=== PATIENT | female | born 1960 | race Caucasian/White ===

== ENCOUNTER 2017-12-06 21:50 | Inpatient (IN) | payer OTHER ==
[~2017-12-06] VITALS: Ht 172.7 cm; Wt 100.5 kg
[~2017-12-06 21:50] MED LIST: ATEN25TA PO; HYDR-3516 PO; MELO7.5T27 PO; VARE.5 PO
[2017-12-06 22:36] VITALS: BP 96/55; PULSE 94; RESP 20; TEMP 99.9; O2SAT 96
[2017-12-06] MEDS ORDERED: BISACODYL 10 MG SUPP RECTAL PRN (22:45)
[2017-12-06] MEDS ORDERED: PILL SPLITTER OTHER PRN (22:45)
[2017-12-06] MEDS ORDERED: HYDROmorphone HCL PF 1 MG/ML VIAL IV PUSH PRN (22:45)
[2017-12-06] MEDS ORDERED: ONDANSETRON HCL 4 MG/2 ML VIAL IVP PRN (22:45)
[2017-12-06] MEDS ORDERED: SODIUM CHLORIDE 0.9% FLUSH 10 ML FLUSH IV FLUSH PRN (22:45)
[2017-12-06] MEDS ORDERED: NALOXONE HCL 0.4 MG/ML AMP IV PUSH PRN (22:45)
[2017-12-06] MEDS ORDERED: SENNOSIDES 8.6 MG TAB PO PRN (22:45)
[2017-12-06] MEDS ORDERED: LACTULOSE SYRUP 20 GM/30 ML CUP PO PRN (22:45)
[2017-12-06] MEDS ORDERED: MAGNESIUM HYDROXIDE SUSP 30 ML CUP PO PRN (22:45)
--- NOTE | 2017-12-06 22:49 | HHI.HP ---
HPI Service CP Hospitalists Primary Care Physician Unknown Admission Diagnosis pneumonia ,pleuritic chest pain cough Chief Complaint: cough with chest pain Travel History International Travel<30 Days: No Contact w/Intl Traveler <30 Da: No Traveled to Known Affected Are: No History of Present Illness This is a 57-year-old female presents to the ER complaining of cough runny nose for the last 2 weeks. She also complained of a fall I was mechanical this morning and started having rib cage pain that she thought was due to the fall which prompted her to come to the ER. Pain is located in the left rib cage, worse when she takes a deep breath or coughs. Cough is productive of yellow sputum and has been going on for the last 2 weeks. She denies any fevers chills or night sweats she denies any weight loss or low appetite. Patient has been on mucinex without improvement ,in ER had chest xray and CTA-negative for pulmonary embolus but did show significant rt middle lobe pneumonia ,and started on levaquin. Patient also having pleuretic chest pain with cough. Review of Systems Respiratory: COMPLAINS OF: Cough Cardiovascular: COMPLAINS OF: Chest pain Past Family Social History Past Medical History chronic sciatic back pain,anxiety takes atenolol prn for heart rate Past Surgical History none Reported Medications xanax 1mg,atenolol 12.5 bid prn,melaxocam 7.5,chantex hydrocodone prn Allergies: Coded Allergies: No Known Allergies (Unverified , 12/06/17) Social History recently decreased smoking Physical Exam Vital Signs Vital Signs Date Time Temp Pulse Resp B/P (MAP) Pulse Ox O2 Delivery O2 Flow Rate FiO2 12/06/17 22:36 99.9 94 20 96/55 (69) 96 Physical Exam GENERAL: This is a well-nourished, well-developed patient, in no apparent distress. SKIN: No rashes, ecchymoses or lesions. Cool and dry. HEAD: Atraumatic. Normocephalic. No temporal or scalp tenderness. EYES: Pupils equal round and reactive. Extraocular motions intact. No scleral icterus. No injection or drainage. ENT: Nose without bleeding, purulent drainage or septal hematoma. Throat without erythema, tonsillar hypertrophy or exudate. Uvula midline. Airway patent. NECK: Trachea midline. No JVD or lymphadenopathy. Supple, nontender, no meningeal signs. CARDIOVASCULAR: Regular rate and rhythm without murmurs, gallops, or rubs. RESPIRATORY: Decrease breath sounds with rhonchi rt base GASTROINTESTINAL: Abdomen soft, non-tender, nondistended. No hepato-splenomegaly , or palpable masses. No guarding. MUSCULOSKELETAL: Extremities without clubbing, cyanosis, or edema. No joint tenderness, effusion, or edema noted. No calf tenderness. Negative Homans sign bilaterally. NEUROLOGICAL: Awake and alert. Cranial nerves II through XII intact. Motor and sensory grossly within normal limits. Five out of 5 muscle strength in all muscle groups. Normal speech. Laboratory lab review no significant changes Imaging pneumonia rt middle lobe on CT scan Course start on levaquin fluids pain medication Caprini VTE Risk Assessment Caprini VTE Risk Assessment: Mod/High Risk (score >= 2) Caprini Risk Assessment Model Point Value = 1 Point Value = 2 Point Value = 3 Point Value = 5 Age 41-60 Minor surgery BMI > 25 kg/m2 Swollen legs Varicose veins or History of unexplained or recurrent spontaneous Oral contraceptives or hormone replacement Sepsis (< 1 month) Serious lung disease, including pneumonia (< 1 month) Abnormal pulmonary function Acute myocardial infarction Congestive heart failure (< 1 month) History of inflammatory bowel disease Medical patient at bed rest Age 61-74 Arthroscopic surgery Major open surgery (> 45 min) Laparoscopic surgery (> 45 min) Malignancy Confined to bed (> 72 hours) Immobilizing plaster cast Central venous access Age >= 75 History of VTE Family history of VTE Factor V Leiden Prothrombin [id number] Lupus anticoagulant Anticardiolipin antibodies Elevated serum homocysteine Heparin-induced thrombocytopenia Other congenital or acquired thrombophilia Stroke (< 1 month) Elective arthroplasty Hip, pelvis, or leg fracture Acute spinal cord injury (< 1 month) Prophylaxis Regimen Total Risk Factor Score Risk Level Prophylaxis Regimen 0-1 Low Early ambulation 2 Moderate Order ONE of the following: *Sequential Compression Device (SCD) *Heparin 5000 units SQ BID 3-4 Higher Order ONE of the following medications: *Heparin 5000 units SQ TID *Enoxaparin/Lovenox 40 mg SQ daily (WT < 150 kg, CrCl > 30 mL/min) *Enoxaparin/Lovenox 30 mg SQ daily (WT < 150 kg, CrCl > 10-29 mL/min) *Enoxaparin/Lovenox 30 mg SQ BID (WT < 150 kg, CrCl > 30 mL/min) AND/OR *Sequential Compression Device (SCD) 5 or more Highest Order ONE of the following medications: *Heparin 5000 units SQ TID (Preferred with Epidurals) *Enoxaparin/Lovenox 40 mg SQ daily (WT < 150 kg, CrCl > 30 mL/min) *Enoxaparin/Lovenox 30 mg SQ daily (WT < 150 kg, CrCl > 10-29 mL/min) *Enoxaparin/Lovenox 30 mg SQ BID (WT < 150 kg, CrCl > 30 mL/min) AND *Sequential Compression Device (SCD) Assessment and Plan Problem List: (1) Pneumonia ICD Codes: J18.9 - Pneumonia, unspecified organism Plan: rt sided will continue levaquin oxygen will get pulmonary evaluation follow labs (2) Pleuritic chest pain ICD Codes: R07.81 - Pleurodynia Plan: hydromorph for pain Assessment and Plan further plan as case progresses may need to change to full admit Code Status full Discussed Condition With patient Gilberto Person MD Dec 06, 2017 22:49
[2017-12-06 23:25] VITALS: BP 96/52; PULSE 85; RESP 20; TEMP 98.7; O2SAT 100
[2017-12-06] MEDS: SODIUM CHLOR 0.45% 1000 ML INJ 1,000 ML IV SCH (23:52)
[2017-12-06] MEDS: LEVOFLOXACIN 500 MG PREMIX INJ 100 ML IV SCH (23:53)
[2017-12-06] MEDS: guaiFENesin/CODEINE SYRUP 200 MG/20 MG/10 ML CUP PO PRN (23:53)
[2017-12-07] VITALS (12 sets, daily range): BP systolic 101–132; BP diastolic 54–74; PULSE 84–110; RESP 16–24; TEMP 97.8–100.6; O2SAT 91–98
[2017-12-07] MEDS: ACETAMINOPHEN/HYDROcodone 325 MG/5 MG TAB PO PRN ×2 (03:43→13:16)
[2017-12-07] MEDS: HYDROmorphone HCL PF 2 MG/ML VIAL IV PUSH PRN ×2 (05:12→21:30)
[2017-12-07] MEDS ORDERED: ATENOLOL 25 MG TAB PO SCH (09:00)
[2017-12-07] MEDS: RESP: ALBUTEROL 2.5 MG/IPRATROPIUM 0.5 MG NEB (SCH) NEB ×3 (09:45→20:38)
--- NOTE | 2017-12-07 10:30 | HHI.PR ---
Subjective Remarks Pt reports that she has had a cough and congestion for about 2 weeks Two days ago she started having right sided rib pain with coughing or deep breathing. Pt started feeling generally worse and having increased cough with some yellow sputum when she is able to take a deep enough breath to cough anything up. Objective Vitals Vital Signs Date Time Temp Pulse Resp B/P (MAP) Pulse Ox O2 Delivery O2 Flow Rate FiO2 12/07/17 09:58 97 12/07/17 07:43 98.7 97 16 114/64 (81) 97 12/07/17 03:33 100.6 103 24 108/56 (73) 95 12/07/17 01:02 91 12/07/17 00:00 98 12/06/17 23:25 98.7 85 20 96/52 (67) 100 12/06/17 22:36 99.9 94 20 96/55 (69) 96 Imaging CXR (12/06/17) --> Bibasilar pneumonia. Small right pleural effusion CT Pulmonary Angiogram (12/06/17)--> Negative for PE. Small right pleural effusion with dense consolidation in the right middle lobe Objective Remarks General: Ill appearing white female, AAOx3 Chest: Pt taking shallow breaths, tachypneic, decreased air movement on the right base Cardiac: Tachy, regular Abd: +BS, soft ND/NT Ext: No edema A/P Problem List: (1) Pneumonia ICD Codes: J18.9 - Pneumonia, unspecified organism Plan: Right middle lobe pneumonia Pleuritic chest pain - Pt is a 57 y/o WF with anxiety, chronic back pain and tachycardia for which she takes Atenolol as needed at home. - Pt presented to the ED at [facility] on 12/06/17 with complaints of right rib pain. - Pt had reportedly had a cough and congestion for the last 2 weeks. It was documented that the pt fell at home yesterday and started having right sided rib pain. She tells me today that she did not fall but started having increased cough and right sided rib pain two days ago. - CXR (12/06/17) --> Bibasilar pneumonia. Small right pleural effusion - CT Pulmonary Angiogram (12/06/17)--> Negative for PE. Small right pleural effusion with dense consolidation in the right middle lobe - Pt was started on Levaquin IV at admission - She is on 3-4L of supplemental oxygen currently - Pt was started on [place] and Dilaudid PRN for rib pain but pts BP has been low - She is splinting and not taking deep breaths due to pain - Trial of Naprosyn for the pleuritic chest pain - Start Duonebs Q6H and Mucinex BID - Sputum culture - IS - Check urinary antigen for Legionella and Pneumococcal - IVF - She was a tobacco smoker for about 12 years but quit 1 month ago and has been on Chantix. - Pulmonary Medicine was consulted at admission - Supportive care - DVT prophylaxis with SCDs Sinus tachycardia - Atenolol on hold due to hypotension - Telemetry (2) Pleuritic chest pain ICD Codes: R07.81 - Pleurodynia Luiza Díaz Dec 07, 2017 10:30
[2017-12-07] MEDS ORDERED: NAPROXEN 500 MG TAB PO ONE (11:00)
[2017-12-07] MEDS: DOCUSATE SODIUM 50 MG/SENNA 8.6 MG TAB PO SCH ×2 (11:01→21:29)
[2017-12-07] MEDS: guaiFENesin E.R. 600 MG TAB PO SCH ×2 (11:02→21:29)
[2017-12-07] MEDS: SODIUM CHLORIDE 0.9% FLUSH 10 ML FLUSH IV FLUSH SCH ×2 (11:02→21:00)
[2017-12-07 11:11] LABS: ALBUMIN 2.2 GM/DL (3.4-5.0); ALT (GPT) 17 U/L (10-53); AST (GOT) 24 U/L (15-37); BICARBONATE 28.1 MEQ/L (21.0-32.0); BLOOD UREA NITROGEN 14 MG/DL (7-18); CHLORIDE 95 MEQ/L (98-107); CREATININE 0.63 MG/DL (0.50-1.00); GLOMERULAR FILTRATION RATE 97 ML/MIN (>89); GLUCOSE,RANDOM 128 MG/DL (74-106); SODIUM (NA) 131 MEQ/L (136-145)
[2017-12-07 11:13] LABS: ALKALINE PHOSPHATASE 81 U/L (45-117); TOTAL BILIRUBIN ADULT 0.3 MG/DL (0.2-1.0); TOTAL PROTEIN 7.8 GM/DL (6.4-8.2)
[2017-12-07 11:31] LABS: AUTOMATED NEUTROPHIL # 7.4 TH/MM3 (1.8-7.7); BASOPHIL % 0.2 % (0.0-2.0); EOSINOPHIL % 0.3 % (0.0-4.0); HEMATOCRIT 31.7 % (35.0-46.0); HEMOGLOBIN 10.6 GM/DL (11.6-15.3); LYMPH % 5.2 % (9.0-44.0); LYMPHOCYTE # 0.4 TH/MM3 (1.0-4.8); MEAN CELL VOLUME 82.3 FL (80.0-100.0); MEAN CORPUSCULAR HEMOGLOBIN 27.6 PG (27.0-34.0); MEAN CORPUSCULAR HGB CONC 33.5 % (32.0-36.0); MEAN PLATELET VOLUME 8.2 FL (7.0-11.0); MONO % 7.9 % (0.0-8.0); MONOCYTE # 0.7 TH/MM3 (0-0.9); NEUT % 86.4 % (16.0-70.0); PLATELET COUNT 206 TH/MM3 (150-450); RED BLOOD COUNT 3.85 MIL/MM3 (4.00-5.30); RED CELL DISTRIBUTION WIDTH 15.8 % (11.6-17.2); WHITE BLOOD COUNT 8.5 TH/MM3 (4.0-11.0)
[2017-12-07] MEDS: SODIUM CHLOR 0.45% 1000 ML INJ 1,000 ML IV SCH (11:52)
--- NOTE | 2017-12-07 13:07 | MB ---
cc: Arron Méndez MD DATE: 12/07/2017 REQUESTING PHYSICIAN: Dr. Hernandez. REASON FOR CONSULTATION: Evaluate for pneumonia. HISTORY OF PRESENT ILLNESS: Mrs. Hart is a 57-year-old female with a history of nicotine use which she claims to have quit few weeks ago when she was taking Chantix. She came to the hospital with cough and cold and right-sided chest pain for the last 3 days or so. She has cough, only small amount of sputum, but she did not have fever. No nausea or vomiting. Because of worsening of symptoms, she came to the hospital. She had CT of the chest done; it does not show any pulmonary embolism. It shows she has dense right middle lobe consolidation and has subcarinal lymph node measuring 1.1 cm. Her CBC shows a WBC count of 8.5, hemoglobin 10.6, hematocrit 31.7, MCV 88, platelet count 206. Sodium 130, potassium 3.7, chloride 94, CO2 28, BUN 14, creatinine 0.63. She feels her breathing is better. She is on room air. Does complain of chest pain. PAST MEDICAL HISTORY: Significant for history of nicotine use, chronic back pain. MEDICATIONS: She is currently takin. Naproxen 500 mg every 12 hours. 2. Mucinex 600 mg twice a day. 3. Albuterol/Atrovent nebulizer treatment. 4. Dilaudid for pain. 5. Levaquin 500 mg a day. 6. Hydrocodone for pain. ALLERGIES: NO KNOWN DRUG ALLERGIES. SOCIAL HISTORY: She has history of smoking, which she quit a few weeks ago. Denies any alcohol use. She works taking care of elderly people. FAMILY HISTORY: She is , lives with a roommate. No children. REVIEW OF SYSTEMS: Normally she is up, around and active. Weight is stable. No DVT, pulmonary embolism, no seizure, stroke or epilepsy. PHYSICAL EXAMINATION: GENERAL: Thin built female, mild discomfort, not in acute distress. VITAL SIGNS: Blood pressure 132/74, heart rate 110, respirations 16, temperature 98. HEENT EXAMINATION: Pupils are equal and reactive. Oral mucosa, nasal mucosa normal. NECK: Supple. No JVD noted. CHEST: She has rales on the right side. CARDIOVASCULAR: S1, S2 normal. ABDOMEN: Benign. EXTREMITIES: No edema. ASSESSMENT: 1. Right middle lobe pneumonia, likely community acquired pneumonia. She is not bringing up any sputum. 2. Right pleuritic chest pain. 3. Likely underlying chronic obstructive pulmonary disease. 4. Subcarinal lymph node, likely reactive. PLAN: We will treat her with antibiotic, aerosol treatment, Mucinex twice a day, pain controlled. She will need a repeat CAT scan in about 6 weeks or so to make sure the infiltrates have resolved and the subcarinal lymph node is improving. Further treatment will depend on the course in the hospital. Thank you Dr. Hernandez for this consult. MD SAMMI Bear/SB , 12:30 PM , 01:06 PM
[2017-12-07] MEDS: NAPROXEN 500 MG TAB PO SCH (21:29)
[2017-12-07] MEDS: LEVOFLOXACIN 500 MG PREMIX INJ 100 ML IV SCH (23:30)
[2017-12-08] VITALS (9 sets, daily range): BP systolic 100–110; BP diastolic 55–59; PULSE 80–100; RESP 18; TEMP 97.4–98.4; O2SAT 96–98
[2017-12-08] MEDS: HYDROmorphone HCL PF 2 MG/ML VIAL IV PUSH PRN ×6 (01:33→23:58)
[2017-12-08] MEDS: SODIUM CHLOR 0.45% 1000 ML INJ 1,000 ML IV SCH ×2 (06:59→20:46)
[2017-12-08] MEDS: RESP: ALBUTEROL 2.5 MG/IPRATROPIUM 0.5 MG NEB (SCH) NEB ×3 (07:44→19:33)
[2017-12-08] MEDS: SODIUM CHLORIDE 0.9% FLUSH 10 ML FLUSH IV FLUSH SCH ×2 (08:43→20:44)
[2017-12-08] MEDS: DOCUSATE SODIUM 50 MG/SENNA 8.6 MG TAB PO SCH ×2 (08:43→20:44)
[2017-12-08] MEDS: guaiFENesin E.R. 600 MG TAB PO SCH ×2 (08:43→20:44)
[2017-12-08] MEDS: NAPROXEN 500 MG TAB PO SCH (08:43)
--- NOTE | 2017-12-08 11:12 | HHI.PR ---
Subjective Remarks maybe a little better. still miserable hard to cough due to pain. Objective Vitals heart reg lung crackles right lung/ abd s/nt ext no edema Vital Signs Date Time Temp Pulse Resp B/P (MAP) Pulse Ox O2 Delivery O2 Flow Rate FiO2 12/08/17 08:00 97.4 80 18 100/55 (70) 98 12/08/17 07:45 97 Nasal Cannula 3.00 12/07/17 23:59 99.9 94 16 101/54 (70) 97 12/07/17 23:00 94 12/07/17 20:43 96 Nasal Cannula 3.00 12/07/17 20:38 98.7 97 20 108/56 (73) 96 12/07/17 15:25 97.8 84 18 107/59 (75) 94 12/07/17 14:16 20 12/07/17 12:29 108 24 91 12/07/17 11:56 98.0 110 16 132/74 (93) 93 12/08/17 12/08/17 12/09/17 15:00 23:00 07:00 Intake Total 360 ml Balance 360 ml IV Total 360 ml Result Diagram: 12/07/17 1020 12/07/17 1020 Imaging CXR (12/06/17) --> Bibasilar pneumonia. Small right pleural effusion CT Pulmonary Angiogram (12/06/17)--> Negative for PE. Small right pleural effusion with dense consolidation in the right middle lobe A/P Problem List: (1) Pneumonia ICD Codes: J18.9 - Pneumonia, unspecified organism Status: Acute Plan: Right middle lobe pneumonia CAP Pleuritic chest pain - Pt is a 57 y/o WF with anxiety, chronic back pain and tachycardia for which she takes Atenolol as needed at home. - Pt presented to the ED at [facility] on 12/06/17 with complaints of right rib pain. - Pt had reportedly had a cough and congestion for the last 2 weeks. It was documented that the pt fell at home yesterday and started having right sided rib pain. She tells me today that she did not fall but started having increased cough and right sided rib pain two days ago. - CXR (12/06/17) --> Bibasilar pneumonia. Small right pleural effusion - CT Pulmonary Angiogram (12/06/17)--> Negative for PE. Small right pleural effusion with dense consolidation in the right middle lobe - Pt was started on Levaquin IV at admission - She is on 3-4L of supplemental oxygen currently - Pt was started on [place] and Dilaudid PRN - She is splinting and not taking deep breaths due to pain - Trial of Naprosyn for the pleuritic chest pain - Start Duonebs Q6H and Mucinex BID - Sputum culture - IS - Check urinary antigen for Legionella and Pneumococcal. still pending - IVF - She was a tobacco smoker for about 12 years but quit 1 month ago and has been on Chantix. - Pulmonary Medicine was consulted at admission - repeat cxr pending -pulmonary recommending repeat ct chest in 4-6 weeks. - DVT prophylaxis with SCDs Sinus tachycardia - Atenolol on hold due to hypotension - Telemetry (2) Pleuritic chest pain ICD Codes: R07.81 - Pleurodynia Eitan Robbins MD Dec 08, 2017 11:12
--- NOTE | 2017-12-08 12:22 | RADRPT ---
EXAM DATE/TIME: 12/08/2017 10:59 [facility] COMPARISON: CT PULMONARY ANGIOGRAM, December 06, 2017, 18:36. INDICATIONS : Shortness of breath, midline chest pain, and coughing. MEDICAL HISTORY : None. SURGICAL HISTORY : None. ENCOUNTER: Subsequent ACUITY: 3 days PAIN SCORE: 4/10 LOCATION: Chest, midline. FINDINGS: Extensive consolidation of the right lung base is still noted. Small right pleural effusion is also n oted. The left lung is clear. CONCLUSION: Persistent extensive consolidation of the right lung base and small right pleural eff usion. Nixon Lee MD on December 08, 2017 at 12:18 Board Certified Radiologist. This report was verified electronically.
[2017-12-08 17:49] LABS: AUTOMATED NEUTROPHIL # 5.3 TH/MM3 (1.8-7.7); BASOPHIL % 0.5 % (0.0-2.0); EOSINOPHIL # 0.1 TH/MM3 (0-0.4); EOSINOPHIL % 1.1 % (0.0-4.0); HEMATOCRIT 28.6 % (35.0-46.0); HEMOGLOBIN 9.4 GM/DL (11.6-15.3); LYMPH % 13.3 % (9.0-44.0); LYMPHOCYTE # 0.9 TH/MM3 (1.0-4.8); MEAN CELL VOLUME 81.3 FL (80.0-100.0); MEAN CORPUSCULAR HEMOGLOBIN 26.8 PG (27.0-34.0); MEAN CORPUSCULAR HGB CONC 32.9 % (32.0-36.0); MONO % 7.5 % (0.0-8.0); MONOCYTE # 0.5 TH/MM3 (0-0.9); NEUT % 77.6 % (16.0-70.0); PLATELET COUNT 238 TH/MM3 (150-450); RED BLOOD COUNT 3.52 MIL/MM3 (4.00-5.30); WHITE BLOOD COUNT 6.8 TH/MM3 (4.0-11.0)
[2017-12-08 18:17] LABS: BICARBONATE 27.3 MEQ/L (21.0-32.0); CREATININE 0.49 MG/DL (0.50-1.00)
[2017-12-08] MEDS: ALPRAZolam 0.5 MG TAB PO PRN (20:44)
[2017-12-08] MEDS: LEVOFLOXACIN 500 MG TAB PO SCH (23:57)
[2017-12-09] VITALS (11 sets, daily range): BP systolic 100–123; BP diastolic 53–62; PULSE 88–100; RESP 18–19; TEMP 97.4–98.3; O2SAT 93–98
[2017-12-09] MEDS: SODIUM CHLOR 0.45% 1000 ML INJ 1,000 ML IV SCH (03:52)
[2017-12-09] MEDS: HYDROmorphone HCL PF 2 MG/ML VIAL IV PUSH PRN ×5 (04:13→20:39)
[2017-12-09] MEDS: guaiFENesin/CODEINE SYRUP 200 MG/20 MG/10 ML CUP PO PRN ×2 (04:15→16:03)
[2017-12-09] MEDS: DOCUSATE SODIUM 50 MG/SENNA 8.6 MG TAB PO SCH ×2 (08:19→20:38)
[2017-12-09] MEDS: guaiFENesin E.R. 600 MG TAB PO SCH ×2 (08:19→20:38)
[2017-12-09] MEDS: SODIUM CHLORIDE 0.9% FLUSH 10 ML FLUSH IV FLUSH SCH ×2 (08:20→20:39)
--- NOTE | 2017-12-09 11:14 | HHI.PR ---
Subjective Remarks Pt doing better with taking deep breaths but she is still requiring the IV dailudid for pain She is bringing up yellow sputum Objective Vitals Vital Signs Date Time Temp Pulse Resp B/P (MAP) Pulse Ox O2 Delivery O2 Flow Rate FiO2 12/09/17 09:26 97 12/09/17 08:54 96 12/09/17 07:48 97.7 99 19 109/60 (76) 97 12/09/17 04:00 98.3 96 18 109/53 (71) 94 12/09/17 00:00 98.1 93 18 104/56 (72) 96 12/08/17 23:47 100 12/08/17 20:00 98.4 99 18 108/59 (75) 97 12/08/17 19:35 96 Nasal Cannula 3.00 12/08/17 19:26 100 12/08/17 16:14 92 12/08/17 16:00 98.1 94 18 110/56 (74) 98 12/08/17 12:00 97.8 90 18 102/57 (72) 98 12/08/17 12:00 84 Result Diagram: 12/08/17 1711 12/08/17 1711 Other Results Laboratory Tests Test 12/08/17 17:11 White Blood Count 6.8 TH/MM3 Red Blood Count 3.52 MIL/MM3 Hemoglobin 9.4 GM/DL Hematocrit 28.6 % Mean Corpuscular Volume 81.3 FL Mean Corpuscular Hemoglobin 26.8 PG Mean Corpuscular Hemoglobin Concent 32.9 % Red Cell Distribution Width 16.0 % Platelet Count 238 TH/MM3 Mean Platelet Volume 8.0 FL Neutrophils (%) (Auto) 77.6 % Lymphocytes (%) (Auto) 13.3 % Monocytes (%) (Auto) 7.5 % Eosinophils (%) (Auto) 1.1 % Basophils (%) (Auto) 0.5 % Neutrophils # (Auto) 5.3 TH/MM3 Lymphocytes # (Auto) 0.9 TH/MM3 Monocytes # (Auto) 0.5 TH/MM3 Eosinophils # (Auto) 0.1 TH/MM3 Basophils # (Auto) 0.0 TH/MM3 CBC Comment DIFF FINAL Differential Comment Blood Urea Nitrogen 12 MG/DL Creatinine 0.49 MG/DL Random Glucose 101 MG/DL Calcium Level 8.0 MG/DL Magnesium Level 2.0 MG/DL Sodium Level 136 MEQ/L Potassium Level 3.7 MEQ/L Chloride Level 100 MEQ/L Carbon Dioxide Level 27.3 MEQ/L Anion Gap 9 MEQ/L Estimat Glomerular Filtration Rate 130 ML/MIN Imaging Last Impressions Chest X-Ray 12/08/17 0600 Signed Impressions: Service Date/Time: Friday, December 08, 2017 10:59 - CONCLUSION: Persistent extensive consolidation of the right lung base and small right pleural effusion. Nixon Lee MD CXR (12/06/17) --> Bibasilar pneumonia. Small right pleural effusion CT Pulmonary Angiogram (12/06/17)--> Negative for PE. Small right pleural effusion with dense consolidation in the right middle lobe Objective Remarks General: NAD, AAOx3 Chest: Decreased air movement on the right base Cardiac: Regular Abd: +BS, soft ND/NT Ext: No edema A/P Problem List: (1) Pneumonia ICD Codes: J18.9 - Pneumonia, unspecified organism Status: Acute Plan: Right middle lobe pneumonia CAP Pleuritic chest pain - Pt is a 57 y/o WF with anxiety, chronic back pain and tachycardia for which she takes Atenolol as needed at home. - Pt presented to the ED at [facility] on 12/06/17 with complaints of right rib pain. - Pt had reportedly had a cough and congestion for the last 2 weeks. It was documented that the pt fell at home yesterday and started having right sided rib pain. She tells me today that she did not fall but started having increased cough and right sided rib pain two days ago. - CXR (12/06/17) --> Bibasilar pneumonia. Small right pleural effusion - CT Pulmonary Angiogram (12/06/17)--> Negative for PE. Small right pleural effusion with dense consolidation in the right middle lobe - Pt was started on Levaquin IV at admission - She is on 3-4L of supplemental oxygen currently - Pt is on [place] and Dilaudid PRN - She is splinting and not taking deep breaths due to pain - Pt was given a few doses of Naprosyn for the pleuritic chest pain - Duonebs Q6H and Mucinex BID - Sputum culture is pending - IS - Check urinary antigen for Legionella and Pneumococcal, still pending - She was a tobacco smoker for about 12 years but quit 1 month ago and has been on Chantix. - Pulmonary Medicine is following. - Repeat CXR (12/08) --> Persistent extensive consolidation of the right lung base and small right pleural effusion. - Pulmonary recommending repeat CT chest in 4-6 weeks. - Levaquin po - CXR in AM - Stop IVF - Stop IV Dilaudid in AM - DVT prophylaxis with SCDs Sinus tachycardia - Atenolol on hold due to hypotension - Telemetry (2) Pleuritic chest pain ICD Codes: R07.81 - Pleurodynia Assessment and Plan Patient examined. Assessment and plan formulated with Luiza Díaz PA-C. I agree with the above. Per pt, she chronically takes narcotics at home for LBP and now requires dilaudid for continued chest wall pain. Explained to pt that dilaudid would stop tomorrow morning. Pt had good air movement on physical exam. Repeat CXR in AM. Anticipate d/c to home in 1-2 days. Luiza Díaz Dec 09, 2017 11:14 Shaan Lilly DO Dec 09, 2017 23:47
[2017-12-09] MEDS: ALPRAZolam 0.5 MG TAB PO PRN (11:55)
[2017-12-09] MEDS ORDERED: ALPRAZolam 1 MG TAB PO PRN (15:15)
[2017-12-09] MEDS: RESP: ALBUTEROL 2.5 MG/IPRATROPIUM 0.5 MG NEB (SCH) NEB (19:00)
[2017-12-09] MEDS: LEVOFLOXACIN 500 MG TAB PO SCH (20:40)
--- NOTE | 2017-12-09 21:20 | HHI.PR ---
Subjective Remarks 57 YOWF with RML Pn, Pleuritic CP Feels much better no Fever CP improved On RA Objective Vital Signs Vital Signs Date Time Temp Pulse Resp B/P (MAP) Pulse Ox O2 Delivery O2 Flow Rate FiO2 12/09/17 16:57 89 12/09/17 16:00 98.1 91 18 119/61 (80) 93 12/09/17 12:54 100 12/09/17 12:03 97.6 93 18 123/62 (82) 93 12/09/17 09:26 97 12/09/17 08:54 96 12/09/17 07:48 97.7 99 19 109/60 (76) 97 12/09/17 04:00 98.3 96 18 109/53 (71) 94 12/09/17 00:00 98.1 93 18 104/56 (72) 96 12/08/17 23:47 100 I/O 12/08/17 12/08/17 12/08/17 12/09/17 12/09/17 12/09/17 07:00 15:00 23:00 07:00 15:00 23:00 Intake Total 240 ml 360 ml 875 ml 560 ml Balance 240 ml 360 ml 875 ml 560 ml Intake Oral 240 ml 560 ml IV Total 360 ml 875 ml # Voids 1 2 2 # Bowel Movements 1 Result Diagram: 12/08/17 1711 12/08/17 1711 Objective Remarks GENERAL: Thin bulit WF,NAD SKIN: Warm and dry. HEAD: Normocephalic. EYES: No scleral icterus. No injection or drainage. NECK: Supple, trachea midline. No JVD or lymphadenopathy. CARDIOVASCULAR: Regular rate and rhythm without murmurs, gallops, or rubs. RESPIRATORY: Breath sounds equal bilaterally. No accessory muscle use. GASTROINTESTINAL: Abdomen soft, non-tender, nondistended. MUSCULOSKELETAL: No cyanosis, or edema. BACK: Nontender without obvious deformity. No CVA tenderness. A/P Assessment and Plan IMPRESSION: 1. Right middle lobe pneumonia, likely community acquired pneumonia. She is not bringing up any sputum. 2. Right pleuritic chest pain. 3. Likely underlying chronic obstructive pulmonary disease. 4. Subcarinal lymph node, likely reactive PLAN: PO Abx Aerosol nebs Mucinex bid Stable on RA DC plans for home. Arron Méndez MD Dec 09, 2017:20
[2017-12-10] VITALS (7 sets, daily range): BP systolic 93–110; BP diastolic 50–65; PULSE 75–93; RESP 17–18; TEMP 97.6–98.1; O2SAT 94–99
[2017-12-10] MEDS: ACETAMINOPHEN/HYDROcodone 325 MG/5 MG TAB PO PRN (06:32)
[2017-12-10] MEDS: guaiFENesin/CODEINE SYRUP 200 MG/20 MG/10 ML CUP PO PRN (06:32)
[2017-12-10] MEDS: SODIUM CHLORIDE 0.9% FLUSH 10 ML FLUSH IV FLUSH SCH (08:15)
[2017-12-10] MEDS: guaiFENesin E.R. 600 MG TAB PO SCH (08:15)
[2017-12-10] MEDS: DOCUSATE SODIUM 50 MG/SENNA 8.6 MG TAB PO SCH (08:15)
--- NOTE | 2017-12-10 08:53 | RADRPT ---
EXAM DATE/TIME: 12/10/2017 08:42 [facility] COMPARISON: CHEST PA & LAT, December 08, 2017, 10:59. INDICATIONS : Short of breath, evaluate pneumonia MEDICAL HISTORY : None. pneumonia SURGICAL HISTORY : None. ENCOUNTER: Subsequent ACUITY: 4 - 6 days PAIN SCORE: 0/10 LOCATION: Bilateral chest FINDINGS: PA and lateral views of the chest show consolidation involving the right middle lobe as well as the p osterior basilar segment of the right lower lobe. A small right effusion is noted. There has been latesha e improvement in the aeration of the right lower lobe. The right middle lobe component is unchanged. The effusion is smaller. Left lung is clear. Heart is normal in size. Bony structures are unremarkabl e. CONCLUSION: 1. Some improvement within the right lower lobe consolidation with no change in the right middle lobe component. 2. Slight decrease in size of the right pleural effusion. Dm Beaver Jr., MD on December 10, 2017 at 8:48 Board Certified Radiologist. This report was verified electronically.
[2017-12-10] MEDS: RESP: ALBUTEROL 2.5 MG/IPRATROPIUM 0.5 MG NEB (SCH) NEB ×2 (10:30→13:24)
[2017-12-10] MEDS ORDERED: IPRA0.02 NEB (10:57)
[2017-12-10] MEDS ORDERED: ALBU0.08 NEB (10:57)
--- NOTE | 2017-12-10 10:59 | HHI.DCPOC ---
Discharge Care Plan Diagnosis: (1) Pleuritic chest pain (2) Pneumonia Goals to Promote Your Health - Patient will be continued on Levaquin 500mg daily x 7 days. - She will continue the Albuterol/Ipratropium nebulizer treatments 3-4 times daily for the next 7 days and then can be used every 6 hours as needed after that. - She can continue the Mucinex BID x 7 more days as well. - Her Atenolol as been on hold due to low blood pressure during this admission. We will not resume at discharge but this may need to be started back the further from this hospitalization she gets. This will need to be followed up on by her PCP. - Patient is to followup with her PCP, Dr. Jensen, in 1 week. She has an appt around 01/03/18 but she was instructed to call and get a sooner appt for hospital followup. - Patient will need to followup with Dr. Méndez in 2 weeks, call for an appt. Directions to Meet Your Goals Take your medications as prescribed Follow your dietary instruction Follow activity as directed Keep your appointments as scheduled Take your immunizations and boosters as scheduled If your symptoms worsen call your PCP, if no PCP go to Urgent Care Center or Emergency Room Smoking is Dangerous to Your Health. Avoid second hand smoke Call the 24-hour hour crisis hotline for domestic abuse at Luiza Díaz Dec 10, 2017 10:59 Shaan Lilly DO Dec 17, 2017 12:55
[2017-12-10] MEDS ORDERED: guaiFENesin ER PO (11:00)
[2017-12-10] MEDS ORDERED: LEVA500T33 PO (11:00)
[2017-12-10] MEDS ORDERED: ATEN25TA PO (13:16)
[2017-12-10] MEDS ORDERED: ALPR1TAB3 PO (13:16)
--- NOTE | 2017-12-10 13:28 | HHI.DS ---
Discharge Summary Admission Date Dec 07, 2017 at 09:44 Discharge Date: Dec 10, 2017 Admitting Diagnosis pneumonia ,pleuritic chest pain cough (1) Pneumonia Diagnosis: Principal ICD Codes: J18.9 - Pneumonia, unspecified organism Status: Acute (2) Pleuritic chest pain Diagnosis: Secondary ICD Codes: R07.81 - Pleuro[facility] Dr. Arron Méndez - Pulmonary Medicine Brief History This is a 57-year-old female presents to the ER complaining of cough runny nose for the last 2 weeks. She also complained of a fall I was mechanical this morning and started having rib cage pain that she thought was due to the fall which prompted her to come to the ER. Pain is located in the left rib cage, worse when she takes a deep breath or coughs. Cough is productive of yellow sputum and has been going on for the last 2 weeks. She denies any fevers chills or night sweats she denies any weight loss or low appetite. Patient has been on mucinex without improvement ,in ER had chest xray and CTA-negative for pulmonary embolus but did show significant rt middle lobe pneumonia ,and started on levaquin. Patient also having pleuretic chest pain with cough. CBC/BMP: 12/08/17 1711 12/08/17 1711 Significant Findings Laboratory Tests Test 12/08/17 17:11 Red Blood Count 3.52 MIL/MM3 (4.00-5.30) Hemoglobin 9.4 GM/DL (11.6-15.3) Hematocrit 28.6 % (35.0-46.0) Mean Corpuscular Hemoglobin 26.8 PG (27.0-34.0) Neutrophils (%) (Auto) 77.6 % (16.0-70.0) Lymphocytes # (Auto) 0.9 TH/MM3 (1.0-4.8) Creatinine 0.49 MG/DL (0.50-1.00) Calcium Level 8.0 MG/DL (8.5-10.1) Imaging Last Impressions Chest X-Ray 12/10/17 0600 Signed Impressions: Service Date/Time: Sunday, December 10, 2017 08:42 - CONCLUSION: 1. Some improvement within the right lower lobe consolidation with no change in the right middle lobe component. 2. Slight decrease in size of the right pleural effusion. Dm Beaver Jr., MD CXR (12/06/17) --> Bibasilar pneumonia. Small right pleural effusion CT Pulmonary Angiogram (12/06/17)--> Negative for PE. Small right pleural effusion with dense consolidation in the right middle lobe PE at Discharge General: NAD, AAOx3 Chest: Decreased air movement on the right base Cardiac: Regular Abd: +BS, soft ND/NT Ext: No edema Hospital Course Right middle lobe pneumonia, CAP Pleuritic chest pain Pt is a 57 y/o WF with anxiety, chronic back pain and tachycardia for which she takes Atenolol as needed at home. Pt presented to the ED at [facility] on with complaints of right rib pain. Pt had reportedly had a cough and congestion for the last 2 weeks. It was documented that the pt fell at home yesterday and started having right sided rib pain. She tells me today that she did not fall but started having increased cough and right sided rib pain two days ago. CXR (12/06/17) --> Bibasilar pneumonia. Small right pleural effusion. CT Pulmonary Angiogram (12/06/17)--> Negative for PE. Small right pleural effusion with dense consolidation in the right middle lobe. Pt was started on Levaquin IV at admission. She required supplemental oxygen which was able to be weaned off during admission. Pt was given a few doses of Naprosyn for the pleuritic chest pain. Sputum culture with heavy growth of normal respiratory veto. Pt had clinical improvement on Duonebs Q6H and Mucinex BID as well as the Levaquin. Urinary antigen for Legionella and Pneumococcal were ordered but never sent to the lab. She was a tobacco smoker for about 12 years but quit 1 month ago and has been on Chantix. Pulmonary Medicine evaluated during this admission. Repeat CXR (12/08) --> Persistent extensive consolidation of the right lung base and small right pleural effusion. Pulmonary recommending repeat CT chest in 4-6 weeks as an outpt. Repeat CXR on 12/10 noted some improvement within the RLL consolidation and no change in the RML component and slight decrease in the size of the right pleural effusion. Pt will be continued on Levaquin 500mg po daily x 7 days. Pt will continue the Duonebs 3-4 times daily for the next 7 days and then can be used every 6 hours as needed after that. She can continue the Mucinex BID x 7 more days as well. Sinus tachycardia Pts atenolol as been on hold due to hypotension during this admission. We will not resume at discharge but this may need to be started back the further from this hospitalization she gets. This will need to be followed up on by her PCP. Pt is to followup with her PCP, Dr. Jensen, in 1 week. She has an appt around but she was instructed to call and get a sooner appt for hospital followup. Pt will need to followup with Dr. Méndez in 2 weeks, call for an appt. Pt Condition on Discharge: Stable Discharge Disposition: Discharge Home Discharge Instructions DIET: Follow Instructions for: As Tolerated, No Restrictions Activities you can perform: Regular-No Restrictions Activities to Avoid: Strenuous Activity Follow up Referrals: PCP Follow-up - [address] Jensen Pulmonology - 2 Weeks with Arron Méndez MD New Medications: Albuterol Neb (Albuterol Neb) 2.5 Mg/3 Ml Neb 2.5 MG NEB Q4HR NEB PRN for SHORTNESS OF BREATH, #60 NEBULE 0 Refills Ipratropium Neb (Ipratropium Neb) 0.5 Mg/2.5 Ml Amp 0.5 MG NEB Q4HR NEB PRN for SHORTNESS OF BREATH, #180 NEBULE 0 Refills Levofloxacin (Levaquin) 500 Mg Tablet 500 MG PO Q24H for pneumonia, #7 TAB [guaiFENesin ER] () 600 MG TABCR 600 MG PO BID for pneumonia, #14 TAB Continued Medications: Alprazolam (Alprazolam) 1 Mg Tab 1 MG PO BID PRN for ANXIETY, TAB 0 Refills Hydrocodone-Acetaminophen (Hydrocodone-Acetaminophen) 5-325 mg Tab 1 TAB PO Q4H PRN for PAIN, TAB 0 Refills Varenicline (Chantix) 0.5 Mg Tab 0.5 MG PO BIDPC for Smoking cessation, #8 TAB 0 Refills Days 4-7 Discontinued Medications: Atenolol (Atenolol) 25 Mg Tab 25 MG PO DAILY for Blood Pressure Management, #30 TAB Meloxicam (Meloxicam) 7.5 Mg Tab 7.5 MG PO DAILY for Arthritis Pain, TAB 0 Refills Additional Information Patient examined. Assessment and plan formulated with Luiza Díaz PA-C. I agree with the above. Luiaz Díaz Dec 10, 2017 13:28 Shaan Lilly DO Dec 17, 2017 12:54
== END 2017-12-10 15:53 | disposition home or self-care (01) | DRG 195 ==
LOC: NEDDLT 21:50 → NEPHCDU 22:00 → OBSVTOIN 12-07 09:44 → N05A 12-08 01:20
PROVIDERS: ADMIT Hospitalist; ATTEND Hospitalist
DX: J18.9 Pneumonia, unspecified organism (principal); I95.9 Hypotension, unspecified; R07.81 Pleurodynia; R00.0 Tachycardia, unspecified; F41.9 Anxiety disorder, unspecified; M54.9 Dorsalgia, unspecified; G89.29 Other chronic pain; Z87.891 Personal history of nicotine dependence; Z79.891 Long term (current) use of opiate analgesic
CPT/HCPCS: 71045; 71046; 71275; 76937; 80048; 80053; 83735; 83880; 84484; 85025; 85610; 85730; 87070; 87205; 94640; 96365; 96375; G0378; J1170; J1885; J1956; J2270; J7030; Q9967